=== PATIENT | male | born 1975 | race Caucasian/White ===

== ENCOUNTER 2016-06-05 09:37 | Emergency (ER) | payer MEDICAID ==
[~2016-06-05] VITALS: Ht 175.3 cm; Wt 109.0 kg
[2016-06-05 09:44] VITALS: BP 176/117; PULSE 104; RESP 16; TEMP 99.6; O2SAT 98
--- NOTE | 2016-06-05 10:07 | PD ---
HPI Chief Complaint: Complaint Time Seen by Provider: 09:51 Travel History International Travel<30 days: No Contact w/Intl Traveler<30days: No Traveled to known affect area: No History of Present Illness HPI This 40-year-old male is complaining of right flank pain. He says he has been having pain off and on for the last couple of days. It varies in intensity. He has had to urinate frequently and urinates small amounts he he has had some pain in the scrotum. He says that he had a kidney stone several years ago and about 2004. He passed the stone without complication. He has a history of hypertension and is supposed to be on lisinopril 10 mg daily but has not had it for about a month. He does smoke cigarettes. He's been a drinker in the past. He has noted dark urine. PFSH Past Medical History Depression: Yes Cardiovascular Problems: Yes (htn not taking b/p meds out of meds) Hypertension: Yes Social History Alcohol Use: No Tobacco Use: Yes (2 1/2PPD) Substance Use: No Allergies-Medications (Allergen,Severity, Reaction): Coded Allergies: No Known Allergies (Unverified , 06/05/16) Reported Meds & Prescriptions Reported Meds & Active Scripts Active Percocet (Oxycodone-Acetaminophen) 10-325 mg Tab 1 Tab PO Q4H PRN Lisinopril 10 Mg Tab 10 Mg PO DAILY Review of Systems General / Constitutional: No: Fever, Chills Eyes: No: Diploplia, Blurred Vision HENT: No: Headaches, Vertigo Cardiovascular: No: Chest Pain or Discomfort, Palpitations Respiratory: No: Shortness of Breath Gastrointestinal: No: Diarrhea, Abdominal Pain Genitourinary: Positive: Frequency, Decreased Urinary Output, Flank Pain Musculoskeletal: No: Myalgias, Arthralgias Skin: No Rash Neurologic: No: Weakness, Dizziness Hematologic/Lymphatic: No: Easy Bruising Physical Exam Narrative GENERAL: Well-developed male SKIN: Warm and dry. HEAD: Atraumatic. Normocephalic. EYES: Pupils equal and round. No scleral icterus. No injection or drainage. ENT: No nasal bleeding or discharge. Mucous membranes pink and moist. NECK: Trachea midline. No JVD. CARDIOVASCULAR: Regular rate and rhythm. No murmur appreciated. RESPIRATORY: No accessory muscle use. Clear to auscultation. Breath sounds equal bilaterally. GASTROINTESTINAL: Abdomen soft, non-tender, nondistended. Hepatic and splenic margins not palpable. There is right CVA tenderness : There is no focal tenderness of the testicles. MUSCULOSKELETAL: No obvious deformities. No clubbing. No cyanosis. No edema. NEUROLOGICAL: Awake and alert. No obvious cranial nerve deficits. Motor grossly within normal limits. Normal speech. PSYCHIATRIC: Appropriate mood and affect; insight and judgment normal. Data Data Last Documented VS Vital Signs Date Time Temp Pulse Resp B/P Pulse Ox O2 Delivery O2 Flow Rate FiO2 06/05/16 10:17 94 20 130/81 98 06/05/16 09:44 99.6 Orders Complete Blood Count With Diff (06/05/16 10:02) Basic Metabolic Panel (Bmp) (06/05/16 10:02) Urinalysis - C+S If Indicated (06/05/16 10:02) Ketorolac Inj (Toradol Inj) (06/05/16 10:15) Ondansetron Inj (Zofran Inj) (06/05/16 10:15) Hydromorphone Pf Inj (Dilaudid Pf Inj) (06/05/16 10:15) Lisinopril (Prinivil) (06/05/16 10:15) Labs Laboratory Tests Test 06/05/16 10:05 White Blood Count 7.8 TH/MM3 Red Blood Count 5.14 MIL/MM3 Hemoglobin 15.6 GM/DL Hematocrit 45.3 % Mean Corpuscular Volume 88.0 FL Mean Corpuscular Hemoglobin 30.4 PG Mean Corpuscular Hemoglobin 34.5 % Concent Red Cell Distribution Width 12.4 % Platelet Count 271 TH/MM3 Mean Platelet Volume 7.9 FL Neutrophils (%) (Auto) 58.5 % Lymphocytes (%) (Auto) 30.0 % Monocytes (%) (Auto) 8.4 % Eosinophils (%) (Auto) 2.0 % Basophils (%) (Auto) 1.1 % Neutrophils # (Auto) 4.5 TH/MM3 Lymphocytes # (Auto) 2.3 TH/MM3 Monocytes # (Auto) 0.7 TH/MM3 Eosinophils # (Auto) 0.2 TH/MM3 Basophils # (Auto) 0.1 TH/MM3 CBC Comment DIFF FINAL Differential Comment Urine Collection Type CLEAN CATCH Urine Color DARK-YELLOW Urine Turbidity CLEAR Urine pH 6.5 Urine Specific [place] 1.035 Urine Protein TRACE mg/dL Urine Glucose (UA) NEG mg/dL Urine Ketones TRACE mg/dL Urine Occult Blood MOD Urine Nitrite POS Urine Bilirubin NEG Urine Leukocyte Esterase NEG Urine RBC 25-49 /hpf Urine WBC 0-2 /hpf Urine Squamous Epithelial 0-5 /hpf Cells Urine Calcium Oxalate Crystals MOD /hpf Urine Mucus MOD /lpf Microscopic Urinalysis Comment CULT NOT INDICATED Urine Collection Time 10:05 Sodium Level 144 MEQ/L Potassium Level 4.4 MEQ/L Chloride Level 106 MEQ/L Carbon Dioxide Level 29.0 MEQ/L Anion Gap 9 MEQ/L Blood Urea Nitrogen 9 MG/DL Creatinine 0.99 MG/DL Estimat Glomerular Filtration 84 ML/MIN Rate Random Glucose 109 MG/DL Calcium Level 9.0 MG/DL [facility] Medical Decision Making Medical Screen Exam Complete: Yes Emergency Medical Condition: Yes Medical Record Reviewed: Yes Interpretation(s) Laboratory Tests Test 06/05/16 10:05 White Blood Count 7.8 TH/MM3 Red Blood Count 5.14 MIL/MM3 Hemoglobin 15.6 GM/DL Hematocrit 45.3 % Mean Corpuscular Volume 88.0 FL Mean Corpuscular Hemoglobin 30.4 PG Mean Corpuscular Hemoglobin 34.5 % Concent Red Cell Distribution Width 12.4 % Platelet Count 271 TH/MM3 Mean Platelet Volume 7.9 FL Neutrophils (%) (Auto) 58.5 % Lymphocytes (%) (Auto) 30.0 % Monocytes (%) (Auto) 8.4 % Eosinophils (%) (Auto) 2.0 % Basophils (%) (Auto) 1.1 % Neutrophils # (Auto) 4.5 TH/MM3 Lymphocytes # (Auto) 2.3 TH/MM3 Monocytes # (Auto) 0.7 TH/MM3 Eosinophils # (Auto) 0.2 TH/MM3 Basophils # (Auto) 0.1 TH/MM3 CBC Comment DIFF FINAL Differential Comment Urine Collection Type CLEAN CATCH Urine Color DARK-YELLOW Urine Turbidity CLEAR Urine pH 6.5 Urine Specific [place] 1.035 Urine Protein TRACE mg/dL Urine Glucose (UA) NEG mg/dL Urine Ketones TRACE mg/dL Urine Occult Blood MOD Urine Nitrite POS Urine Bilirubin NEG Urine Leukocyte Esterase NEG Urine RBC 25-49 /hpf Urine WBC 0-2 /hpf Urine Squamous Epithelial 0-5 /hpf Cells Urine Calcium Oxalate Crystals MOD /hpf Urine Mucus MOD /lpf Microscopic Urinalysis Comment CULT NOT INDICATED Urine Collection Time 10:05 Sodium Level 144 MEQ/L Potassium Level 4.4 MEQ/L Chloride Level 106 MEQ/L Carbon Dioxide Level 29.0 MEQ/L Anion Gap 9 MEQ/L Blood Urea Nitrogen 9 MG/DL Creatinine 0.99 MG/DL Estimat Glomerular Filtration 84 ML/MIN Rate Random Glucose 109 MG/DL Calcium Level 9.0 MG/DL Differential Diagnosis Differential includes renal colic, UTI, pyelonephritis Narrative Course Urine shows red cells but no evidence of white cells or infection. Blood work is unremarkable. Presentation is consistent with right renal colic. Patient has a history of hypertension and will also be restarted on his lisinopril Diagnosis Primary Impression: Renal colic on right side Additional Instructions: Force fluids, strain all urines Scripts Oxycodone-Acetaminophen (Percocet)10-325 mg Tab1 Tab PO Q4H PRN (PAIN) #20 TAB Ref 0 Prov:Jordan Lovett MD 06/05/16 Lisinopril 10 Mg Tab10 Mg PO DAILY #30 TAB Ref 0 Prov:Jordan Lovett MD 06/05/16 Disposition: 01 DISCHARGE HOME Condition: Stable Jordan Lovett MD Jun 05, 2016 10:07
[2016-06-05] MEDS ORDERED: PERC10TA27 PO (10:09)
[2016-06-05] MEDS ORDERED: LISI10TA3 PO (10:09)
[2016-06-05 10:13] LABS: AUTOMATED NEUTROPHIL # 4.5 TH/MM3 (1.8-7.7); BASOPHIL # 0.1 TH/MM3 (0-0.2); BASOPHIL % 1.1 % (0.0-2.0); EOSINOPHIL # 0.2 TH/MM3 (0-0.4); HEMATOCRIT 45.3 % (39.0-51.0); HEMO FLAGS DIFF FINAL; LYMPHOCYTE # 2.3 TH/MM3 (1.0-4.8); MEAN CORPUSCULAR HEMOGLOBIN 30.4 PG (27.0-34.0); MEAN CORPUSCULAR HGB CONC 34.5 % (32.0-36.0); MONO % 8.4 % (0.0-8.0); NEUT % 58.5 % (16.0-70.0); PLATELET COUNT 271 TH/MM3 (150-450); RED BLOOD COUNT 5.14 MIL/MM3 (4.50-5.90); RED CELL DISTRIBUTION WIDTH 12.4 % (11.6-17.2); WHITE BLOOD COUNT 7.8 TH/MM3 (4.0-11.0)
[2016-06-05] MEDS ORDERED: HYDROmorphone HCL PF 1 MG/ML VIAL IV PUSH ONE (10:15)
[2016-06-05] MEDS ORDERED: KETOROLAC TROMETHAMINE 30 MG/ML (IVP) VIAL IV PUSH ONE (10:15)
[2016-06-05] MEDS ORDERED: ONDANSETRON HCL 4 MG/2 ML VIAL IV PUSH ONE (10:15)
[2016-06-05] MEDS ORDERED: LISINOPRIL 10 MG TAB PO ONE (10:15)
[2016-06-05 10:17] VITALS: BP 130/81; PULSE 94; RESP 20; O2SAT 98
[2016-06-05 10:19] LABS: GLUCOSE,URINE NEG (NEG); KETONE, URINE TRACE mg/dL (NEG); PH, URINE 6.5 (5.0-8.5)
[2016-06-05 10:21] LABS: POTASSIUM 4.4 MEQ/L (3.5-5.1)
[2016-06-05 10:25] LABS: BLOOD, URINE MOD (NEG); METHOD OF COLLECTION CLEAN CATCH; NITRITE,URINE POS (NEG)
[2016-06-05 10:26] LABS: CALCIUM OXALATE CRYSTALS,URINE MOD /hpf; MUCUS URINE MOD /lpf (OCC); SQUAMOUS EPITHELIAL CELL URINE 0-5 /hpf (0-5); URINE COLOR DARK-YELLOW (YELLW/STRAW); WBC, URINE 0-2 /hpf (0-5)
[2016-06-05 10:27] LABS: COMMENT (UR) CULT NOT INDICATED; CULTURE IF INDICATED CULT NOT INDICATED
[2016-06-05 11:30] VITALS: BP 128/69
[2016-07-01] MEDS ORDERED: LISI10TA3 PO (11:29)
[2016-07-01] MEDS ORDERED: NEUR600T PO (11:29)
== END 2016-06-05 11:31 | disposition home or self-care (01) ==
LOC: PHED 09:37
DX: N23 Unspecified renal colic (principal); I10 Essential (primary) hypertension; F17.210 Nicotine dependence, cigarettes, uncomplicated
CPT/HCPCS: 80048; 81001; 85025; 96374; 96375; 99284; J1170; J1885; J2405

== ENCOUNTER 2016-06-12 08:31 | Emergency (ER) | payer MEDICAID ==
[~2016-06-12] VITALS: Ht 170.2 cm; Wt 109.0 kg
[~2016-06-12 08:31] MED LIST: LISI10TA3 PO; PERC10TA27 PO
[2016-06-12 08:35] VITALS: BP 165/121; PULSE 96; RESP 18; TEMP 98.2; O2SAT 97
[2016-06-12] MEDS ORDERED: ZYPR2.5T2 PO (08:46)
[2016-06-12] MEDS ORDERED: NEUR600T PO ×2 (08:46→08:53)
[2016-06-12] MEDS ORDERED: TRAM50TA PO (08:46)
[2016-06-12] MEDS ORDERED: LURA20TA PO (08:46)
[2016-06-12] MEDS ORDERED: LISI10TA3 PO (08:53)
--- NOTE | 2016-06-12 08:53 | PD ---
HPI Chief Complaint: Medication Refill Request Time Seen by Provider: 08:44 Travel History International Travel<30 days: No Contact w/Intl Traveler<30days: No Traveled to known affect area: No History of Present Illness HPI 40-year-old man, presents complaining of worsening restless leg symptoms after being out of his Neurontin and tramadol. [place] Is setting up with his insurance. Also is history of mental health disease. History Past Medical History Narrative Medical Psychiatric disease, diagnosed schizophrenia and bipolar Restless leg syndrome Hypertension Tetanus Vaccination: < 5 Years Influenza Vaccination: No Past Surgical History Surgical History: No Previous Surgery Social History Alcohol Use: No Tobacco Use: Yes (3 ppd) Allergies-Medications (Allergen,Severity, Reaction): Coded Allergies: No Known Allergies (Unverified , 06/12/16) Reported Meds & Prescriptions Reported Meds & Active Scripts Active Lisinopril 10 Mg Tab 10 Mg PO DAILY Reported Zyprexa (Olanzapine) 2.5 Mg Tab 2.5 Mg PO DAILY Latuda (Lurasidone) 20 Mg Tab 20 Mg PO DAILY Tramadol (Tramadol HCl) 50 Mg Tab 100 Mg PO BID PRN Neurontin (Gabapentin) 600 Mg Tab 600 Mg PO BID Review of Systems Except as stated in HPI: all other systems reviewed are Neg Physical Exam Narrative GENERAL: 40 year-old man, restless and anxious. SKIN: Warm and dry. CARDIOVASCULAR: Warm and well perfused. RESPIRATORY: Normal rate and effort. MUSCULOSKELETAL: No deformities. NEUROLOGICAL: Awake and alert. No gross deficits. Data Data Last Documented VS Vital Signs Date Time Temp Pulse Resp B/P Pulse Ox O2 Delivery O2 Flow Rate FiO2 06/12/16 08:46 96 18 06/12/16 08:35 98.2 165/121 97 MDM Medical Decision Making Medical Screen Exam Complete: Yes Emergency Medical Condition: Yes Differential Diagnosis Anxiety, restless leg, bipolar, other Narrative Course Medical decision-making new para [age] year-old man presents emergent department requesting refills on medications. At that we can refill medications are not controlled forearm. With a primary care doctor. Is also referred to Jose Acosta/courtney. Diagnosis Primary Impression: Restless leg syndrome Additional Impression: Schizophrenia Qualified Code: F20.9 - Schizophrenia, unspecified type Additional Instructions: Take medications as prescribed. Follow-up with Jose Sweet/courtney. Follow-up with her primary care physician. Med/Other Pt SpecificInfo: Prescription(s) given Scripts Gabapentin (Neurontin)600 Mg [id number] Mg PO BID #60 TAB Ref 0 Prov:Michael Mckeon MD 06/12/16 Lisinopril 10 Mg Tab10 Mg PO DAILY #30 TAB Ref 0 Prov:Michael Mckeon MD 06/12/16 Disposition: 01 DISCHARGE HOME Condition: Stable Michael Mckeon MD Jun 12, 2016 08:53
[2016-06-12] MEDS ORDERED: traMADol HCL 50 MG TAB PO ONE (09:00)
[2016-07-01] MEDS ORDERED: LISI10TA3 PO (11:29)
[2016-07-01] MEDS ORDERED: NEUR600T PO (11:29)
== END 2016-06-12 09:39 | disposition home or self-care (01) ==
LOC: PHED 08:31
DX: G25.81 Restless legs syndrome (principal); F20.9 Schizophrenia, unspecified; I10 Essential (primary) hypertension; F17.210 Nicotine dependence, cigarettes, uncomplicated
CPT/HCPCS: 99283

== ENCOUNTER 2016-11-15 09:22 | Emergency (ER) | payer MEDICAID, OTHER ==
[~2016-11-15] VITALS: Ht 175.3 cm; Wt 107.0 kg
[~2016-11-15 09:22] MED LIST changes: +NEUR600T PO; -PERC10TA27 PO
[2016-11-15 09:26] VITALS: BP 145/102; PULSE 112; RESP 16; TEMP 98.6; O2SAT 98
[2016-11-15] MEDS ORDERED: TRAM50TA PO (09:42)
[2016-11-15] MEDS ORDERED: BACT800T5 PO (09:42)
[2016-11-15] MEDS ORDERED: IBUP800T23 PO (09:42)
--- NOTE | 2016-11-15 09:43 | PD ---
HPI . Abscess Chief Complaint: Skin Problem Time Seen by Provider: 09:38 Travel History International Travel<30 days: No Contact w/Intl Traveler<30days: No Traveled to known affect area: No History of Present Illness HPI Patient presents with an abscess on his right lower leg. He reports the onset about 2 days ago. It has been getting progressively worse. He states that this started as an itching and burning grass to a dull, constant ache which he rates as 8/10. PFSH Past Medical History Bipolar Disorder: Yes Anxiety: Yes Depression: Yes Cardiovascular Problems: Yes (htn not taking b/p meds out of meds) Diminished Hearing: No Hypertension: Yes Social History Alcohol Use: No Tobacco Use: Yes (5 CIG DAY) Substance Use: No Allergies-Medications (Allergen,Severity, Reaction): Coded Allergies: No Known Allergies (Unverified , 11/15/16) Reported Meds & Prescriptions Reported Meds & Active Scripts Active No Active Prescriptions or Reported Medications Review of Systems Except as stated in HPI: all other systems reviewed are Neg General / Constitutional: Positive: Chills, No: Fever Skin: Positive Change in Pigmentation, Positive Lesions Physical Exam Narrative GENERAL: Awake and alert and in no acute distress. SKIN: Warm and dry. He has a 2 cm in diameter area of induration and erythema on the lateral right lower extremity. There is no fluctuance. It is tender to palpation. HEAD: Atraumatic. Normocephalic. EYES: Pupils equal and round. NECK: Trachea midline. CARDIOVASCULAR: Regular rate and rhythm. RESPIRATORY: No accessory muscle use. MUSCULOSKELETAL: No obvious deformities. No edema. NEUROLOGICAL: Awake and alert. No obvious cranial nerve deficits. Motor grossly within normal limits. Normal speech. PSYCHIATRIC: Appropriate mood and affect; insight and judgment normal. Data Data Last Documented VS Vital Signs Date Time Temp Pulse Resp B/P Pulse Ox O2 Delivery O2 Flow Rate FiO2 11/15/16 09:26 98.6 112 16 145/102 98 MDM Medical Decision Making Medical Screen Exam Complete: Yes Emergency Medical Condition: Yes Differential Diagnosis My differential diagnosis includes but is not limited to localized wound infection, cellulitis, abscess Narrative Course Patient presents with an area of redness and swelling on his right lateral lower leg. It appears to be an early abscess. I will treat him with antibiotics, pain medication and warm compresses. He is to return in 2 days for recheck. Diagnosis Primary Impression: Abscess Patient Instructions: Abscess (ED), General Instructions Additional Instructions: Warm compresses to the area as much as possible. Return here in 2 days for recheck and possible drainage. Med/Other Pt SpecificInfo: Prescription(s) given Scripts Tramadol 50 Mg Tab50 Mg PO Q4H PRN (PAIN) #12 TAB Ref 0 Prov:Daxa Meadows MD 11/15/16 Ibuprofen 800 Mg [id number] Mg PO Q8H PRN (Pain/Inflammation) #60 TAB Ref 0 Prov:Daxa Meadows MD 11/15/16 Sulfamethoxazole-Trimethoprim (Bactrim DS)800-160 Mg Tab1 Tab PO BID #20 TAB Ref 0 Prov:Daxa Meadows MD 11/15/16 Disposition: 01 DISCHARGE HOME Condition: Stable Daxa Meadows MD Nov 15, 2016 09:43
== END 2016-11-15 10:00 | disposition home or self-care (01) ==
LOC: PHED 09:22
DX: L02.415 Cutaneous abscess of right lower limb (principal); I10 Essential (primary) hypertension
CPT/HCPCS: 99284

== ENCOUNTER 2016-12-13 23:02 | Emergency (ER) | payer OTHER ==
[~2016-12-13] VITALS: Ht 175.3 cm; Wt 103.6 kg
[~2016-12-13 23:02] MED LIST changes: +BACT800T5 PO; +IBUP800T23 PO; -LISI10TA3 PO; -NEUR600T PO; +TRAM50TA PO
[2016-12-13 23:08] VITALS: BP 142/110; PULSE 108; RESP 16; TEMP 98.8; O2SAT 100
--- NOTE | 2016-12-13 23:37 | PD ---
HPI Chief Complaint: Psychiatric Symptoms Time Seen by Provider: 23:18 Travel History International Travel<30 days: No Contact w/Intl Traveler<30days: No Traveled to known affect area: No History of Present Illness HPI This is a 40-year-old male who presents to the emergency department with increasing anxiety, sleeplessness and paranoia. The patient has a history of schizophrenia. He says he started to have problems about 2-1/2 years ago after his overdosed in his arms and . Ever since then he lost control. He moved to [facility] to try to change things. He's been looking to restoration to try to get help and hasn't been taking any medications but this isn' t been helping. He was over at his friend's house today and he started to look out the window and was paranoid about airplanes trying to come get him and he says he's been having dreams about the devil. He knows that these are not normal and he knows that he is having mental health trouble and he wants help. He denies any alcohol or substance use. PFSH Past Medical History Bipolar Disorder: Yes Anxiety: Yes Depression: Yes Cardiovascular Problems: Yes (htn not taking b/p meds out of meds) Diminished Hearing: No Hypertension: Yes Social History Alcohol Use: No Tobacco Use: Yes (5 CIG DAY) Substance Use: No Allergies-Medications (Allergen,Severity, Reaction): Coded Allergies: No Known Allergies (Unverified , 12/14/16) Reported Meds & Prescriptions Reported Meds & Active Scripts Active Reported Tramadol (Tramadol HCl) 50 Mg Tab 50 Mg PO Q8H PRN Latuda (Lurasidone) 20 Mg Tab 20 Mg PO DAILY Neurontin (Gabapentin) 100 Mg Cap 100 Mg PO HS Lisinopril 10 Mg Tab 10 Mg PO DAILY Review of Systems Except as stated in HPI: all other systems reviewed are Neg Physical Exam Narrative GENERAL:Well appearing, no acute distress SKIN: Focused skin assessment warm and dry. HEAD: Atraumatic. Normocephalic. EYES: Pupils equal and round. No injection or drainage. ENT: Moist mucous membranes NECK: Trachea midline. CARDIOVASCULAR: Regular rate and rhythm. No murmur appreciated. RESPIRATORY: Clear to auscultation. Breath sounds equal bilaterally. GASTROINTESTINAL: Abdomen soft, non-tender, nondistended. MUSCULOSKELETAL: No obvious deformities. NEUROLOGICAL: Awake and alert. No obvious cranial nerve deficits. Moving all extremities. PSYCHIATRIC: Pressured speech, anxious, paranoid, no suicidal or homicidal ideation Data Data Last Documented VS Vital Signs Date Time Temp Pulse Resp B/P Pulse Ox O2 Delivery O2 Flow Rate FiO2 12/13/16 23:45 98 22 153/96 99 Room Air 12/13/16 23:08 98.8 Orders Lorazepam (Ativan) (12/13/16 23:45) Complete Blood Count With Diff (12/13/16 23:32) Basic Metabolic Panel (Bmp) (12/13/16 23:32) Alcohol (Ethanol) (12/13/16 23:32) Drug Screen, Random Urine (12/13/16 23:32) Psych Screen (12/13/16 23:37) Labs Laboratory Tests Test 12/13/16 12/13/16 23:45 23:50 Urine Opiates Screen POS Urine Barbiturates Screen NEG Urine Amphetamines Screen NEG Urine Benzodiazepines Screen NEG Urine Cocaine Screen NEG Urine Cannabinoids Screen NEG White Blood Count 10.6 TH/MM3 Red Blood Count 4.78 MIL/MM3 Hemoglobin 14.8 GM/DL Hematocrit 42.4 % Mean Corpuscular Volume 88.6 FL Mean Corpuscular Hemoglobin 31.0 PG Mean Corpuscular Hemoglobin 35.0 % Concent Red Cell Distribution Width 12.2 % Platelet Count 309 TH/MM3 Mean Platelet Volume 7.3 FL Neutrophils (%) (Auto) 55.4 % Lymphocytes (%) (Auto) 35.6 % Monocytes (%) (Auto) 6.7 % Eosinophils (%) (Auto) 1.5 % Basophils (%) (Auto) 0.8 % Neutrophils # (Auto) 5.8 TH/MM3 Lymphocytes # (Auto) 3.8 TH/MM3 Monocytes # (Auto) 0.7 TH/MM3 Eosinophils # (Auto) 0.2 TH/MM3 Basophils # (Auto) 0.1 TH/MM3 CBC Comment DIFF FINAL Differential Comment Sodium Level 139 MEQ/L Potassium Level 3.5 MEQ/L Chloride Level 103 MEQ/L Carbon Dioxide Level 28.2 MEQ/L Anion Gap 8 MEQ/L Blood Urea Nitrogen 16 MG/DL Creatinine 1.20 MG/DL Estimat Glomerular Filtration 67 ML/MIN Rate Random Glucose 126 MG/DL Calcium Level 9.1 MG/DL Ethyl Alcohol Level LESS THAN 3 MG/DL MDM Medical Decision Making Medical Screen Exam Complete: Yes Emergency Medical Condition: Yes Interpretation(s) No leukocytosis Electrolytes are reassuring Urine drug screen is positive for opiates Differential Diagnosis Schizophrenia, anxiety, substance intoxication Narrative Course This is a 40-year-old male who reports a history of schizophrenia who presents to the emergency department with anxiety and increasing paranoia. He has preserved insight and voluntarily wants to be evaluated by psychiatry. Labs are obtained which are reassuring. Urine drug screen is positive for opiates. I think patient is medically cleared for psychiatric evaluation. Diagnosis Primary Impression: Schizophrenia Qualified Code: F20.9 - Schizophrenia, unspecified type Lucinda Polk MD Dec 13, 2016 23:36
[2016-12-13 23:45] VITALS: BP 153/96; PULSE 98; RESP 22; O2SAT 99
[2016-12-13] MEDS ORDERED: LORazepam 1 MG TAB PO ONE (23:45)
[2016-12-13 23:57] LABS: AUTOMATED NEUTROPHIL # 5.8 TH/MM3 (1.8-7.7); BASOPHIL # 0.1 TH/MM3 (0-0.2); BASOPHIL % 0.8 % (0.0-2.0); EOSINOPHIL # 0.2 TH/MM3 (0-0.4); EOSINOPHIL % 1.5 % (0.0-4.0); HEMATOCRIT 42.4 % (39.0-51.0); HEMO FLAGS DIFF FINAL; LYMPH % 35.6 % (9.0-44.0); LYMPHOCYTE # 3.8 TH/MM3 (1.0-4.8); MEAN CELL VOLUME 88.6 FL (80.0-100.0); MONO % 6.7 % (0.0-8.0); NEUT % 55.4 % (16.0-70.0); PLATELET COUNT 309 TH/MM3 (150-450); RED BLOOD COUNT 4.78 MIL/MM3 (4.50-5.90); RED CELL DISTRIBUTION WIDTH 12.2 % (11.6-17.2); WHITE BLOOD COUNT 10.6 TH/MM3 (4.0-11.0)
[2016-12-14 00:10] LABS: CHLORIDE 103 MEQ/L (98-107); POTASSIUM 3.5 MEQ/L (3.5-5.1); SODIUM (NA) 139 MEQ/L (136-145)
[2016-12-14 00:14] LABS: ANION GAP 8 MEQ/L (5-15); BICARBONATE 28.2 MEQ/L (21.0-32.0); BLOOD UREA NITROGEN 16 MG/DL (7-18)
[2016-12-14 00:17] LABS: GLOMERULAR FILTRATION RATE 67 ML/MIN (>89)
[2016-12-14] MEDS ORDERED: NEUR100C PO (00:22)
[2016-12-14] MEDS ORDERED: LURA20TA PO (00:22)
[2016-12-14] MEDS ORDERED: LISI10TA3 PO (00:22)
[2016-12-14] MEDS ORDERED: TRAM50TA PO (00:22)
[2016-12-14 00:26] LABS: AMPHETAMINE, URINE NEG (NEG)
[2016-12-14 00:27] LABS: COCAINE, URINE NEG (NEG)
[2016-12-14 00:31] LABS: BARBITURATES, URINE NEG (NEG)
[2016-12-14 02:31] VITALS: BP 178/87
[2016-12-14 02:36] VITALS: BP 160/109; PULSE 89; RESP 18; O2SAT 100
[2016-12-14 06:52] VITALS: BP 144/96; PULSE 96; RESP 18; O2SAT 99
[2016-12-14] MEDS ORDERED: GABA600T PO (08:21)
[2016-12-14] MEDS ORDERED: ZYPR5TAB PO (08:21)
--- NOTE | 2016-12-14 08:21 | PD.PSY.CON ---
Provisional Diagnosis Admission Date Date of consultation 12/14/16 [place]. 1. Schizophrenia, undifferentiated type, presently fairly stable 2. History of opiate dependence, rule-out covert active use [place] II. Deferred [place] V. GAF is 55 History of Present Illness Service Psychiatry Consult Requested By Emergency department Reason for Consult Voluntary psych eval Primary Care Physician No Primary Care Physician HPI Mr. Hernández is a 40-year-old male with reported history of schizophrenia who presents voluntarily to the ED for psychiatric evaluation. ED provider note reviewed. EMR reviewed. No previous psych contact within our system. Patient seen and examined. Chart reviewed. Case discussed with nurse in the J- pod. No evidence of any suicidality or homicidality while under observation in the J-pod. On my examination this morning, patient is calm and cooperative. Thought process linear and logical. He says that he has been off of psychotropic medications since moving from [place] at the beginning of the year. He has not established psychiatric care here in [facility]. In the setting of this medication nonadherence, he has starting to become a little paranoid. He says he has been nagging thought that airplanes may be tracking him, although he is able at this point to convince himself that this is not the case. Sleep has been a little disrupted although he was able to get some sleep last night in the J-pod. Denies audiovisual hallucinations. No other delusional material. Denies suicidal or homicidal ideation, intent or plan on direct questioning and contracts for safety. No severe depressive or hypomanic/ manic symptoms noted. The remainder of the psychiatric ROS is negative. The patient is agreeable to following up on an outpatient basis and does not think he requires inpatient psychiatric services at this time. He does request a prescription for his Zyprexa and also for his gabapentin for restless legs on discharge from the ED. Past psychiatric history: History of schizophrenia. Not currently under the care of a psychiatrist. Most recently admitted in June of this year in [place]. Previously tried to hang himself 2 years ago. Most recent psychotropic regimen included Zyprexa, Latuda, Lexapro. He also takes gabapentin 1200 mg twice daily and tramadol for restless legs. Family history: Schizophrenia in sister and maternal grandmother. Mother has some sort of mental illness. Father alcoholic. No suicide in the family. Chemical dependency history: Patient admits to a history of opiate dependence but maintains that he has been sober since his from an overdose about 2-1/2 years ago. Says that the opiates in his urine are from using Ultram one week ago. Social history: Patient is . Moved from [place] in July of this year. Staying with a friend by the name of Stas. Eighth grade education. Disabled. Denies history. Denies legal history. Denies access to guns or firearms. Believes in God. Review of Systems Except as stated in HPI: all other systems reviewed are Neg Past Family Social History Coded Allergies: No Known Allergies (Unverified , 12/14/16) Past Medical History see emr Active Scripts Gabapentin 600 Mg Tab1,200 Mg PO BID 3 Days Ref 0 Prov:Jose Kahn MD 12/14/16 Olanzapine (Zyprexa)5 Mg Tab5 Mg PO HS #3 TAB Ref 0 Prov:Jose Kahn MD 12/14/16 Reported Medications Tramadol 50 Mg Tab50 Mg PO Q8H PRN (PAIN) Ref 0 12/14/16 Lurasidone (Latuda)20 Mg Tab20 Mg PO DAILY #30 TAB Ref 0 12/14/16 Gabapentin (Neurontin)100 Mg [id number] Mg PO HS #30 CAP Ref 0 12/14/16 Lisinopril 10 Mg Tab10 Mg PO DAILY #30 TAB Ref 0 12/14/16 Discontinued Scripts Tramadol 50 Mg Tab50 Mg PO Q4H PRN (PAIN) #12 TAB Ref 0 Prov:Daxa Meadows MD 11/15/16 Ibuprofen 800 Mg [id number] Mg PO Q8H PRN (Pain/Inflammation) #60 TAB Ref 0 Prov:Daxa Meadows MD 11/15/16 Sulfamethoxazole-Trimethoprim (Bactrim DS)800-160 Mg Tab1 Tab PO BID #20 TAB Ref 0 Prov:Daxa Meadows MD 11/15/16 Patient's Strengths (min. 2) Able to access clinical care. Verbally fluent. Physical Exam PE completed by ED provider. On my exam, patient in no acute physical distress. No motor abnormalities noted. Labs and vitals reviewed: Vital Signs Vital Signs Date Time Temp Pulse Resp B/P Pulse Ox O2 Delivery O2 Flow Rate FiO2 12/14/16 06:52 96 18 144/96 99 12/13/16 23:45 Room Air 12/13/16 23:08 98.8 Lab Results Laboratory Tests Test 12/13/16 12/13/16 23:45 23:50 Urine Opiates Screen POS Urine Barbiturates Screen NEG Urine Amphetamines Screen NEG Urine Benzodiazepines Screen NEG Urine Cocaine Screen NEG Urine Cannabinoids Screen NEG White Blood Count 10.6 TH/MM3 Red Blood Count 4.78 MIL/MM3 Hemoglobin 14.8 GM/DL Hematocrit 42.4 % Mean Corpuscular Volume 88.6 FL Mean Corpuscular Hemoglobin 31.0 PG Mean Corpuscular Hemoglobin 35.0 % Concent Red Cell Distribution Width 12.2 % Platelet Count 309 TH/MM3 Mean Platelet Volume 7.3 FL Neutrophils (%) (Auto) 55.4 % Lymphocytes (%) (Auto) 35.6 % Monocytes (%) (Auto) 6.7 % Eosinophils (%) (Auto) 1.5 % Basophils (%) (Auto) 0.8 % Neutrophils # (Auto) 5.8 TH/MM3 Lymphocytes # (Auto) 3.8 TH/MM3 Monocytes # (Auto) 0.7 TH/MM3 Eosinophils # (Auto) 0.2 TH/MM3 Basophils # (Auto) 0.1 TH/MM3 CBC Comment DIFF FINAL Differential Comment Sodium Level 139 MEQ/L Potassium Level 3.5 MEQ/L Chloride Level 103 MEQ/L Carbon Dioxide Level 28.2 MEQ/L Anion Gap 8 MEQ/L Blood Urea Nitrogen 16 MG/DL Creatinine 1.20 MG/DL Estimat Glomerular Filtration 67 ML/MIN Rate Random Glucose 126 MG/DL Calcium Level 9.1 MG/DL Ethyl Alcohol Level LESS THAN 3 MG/DL Mental Status Examination Patient is in hospital gown. He is fairly well groomed and maintaining basic hygiene. Awake and alert and oriented to person and hospital at least. No evidence of delirium. No motor abnormalities noted. Speech within normal limits for rate, tone and volume. Focus and concentration intact. Memory grossly intact on clinical exam. Mood fair and affect somewhat blunted. Thought process linear. No loosening of associations. Some mild paranoia but reality testing remains intact. No other delusions. Denies audiovisual hallucinations. Denies suicidal or homicidal ideation, intent or plan. Insight and judgment are fair. Assessment & Plan Problem List: (1) Schizophrenia ICD Code: F20.9 Assessment & Plan 40-year-old male presenting voluntarily to the emergency department for psychiatric evaluation. He has a history of schizophrenia and has been off of his psychotropic since the beginning of the year when he moved from [place]. Previously took Latuda, Zyprexa and Lexapro. Patient is experiencing some feelings of paranoia, but his reality testing remains intact and he had good insight and judgment in coming into the ED voluntarily. He is denying suicidal or homicidal ideation. There is no evidence of severe psychotic decompensation or other severely unstable mental illness. He is agreeable to following up on an outpatient basis. He is attending to his basic needs. He does not require inpatient psychiatric services at this time. We will refer him for outpatient psychiatric services in the area. I will provide him with a 3 day supply of Zyprexa 5 mg at bedtime as he is unsure of the dose he was taking and has been non-adherent anyway and so a lower dose is preferred initially and also of gabapentin 1200 mg twice daily, his reported home dose. I have discussed the risks and benefits of these medications with the patient. I have reviewed the recommendations regarding gabapentin dosing with respect to his GFR. I have counseled the patient to follow-up on an outpatient basis. I counseled patient regarding warning signs for need to return to the psychiatric emergency room as part of the general safety plan. Patient is psychiatrically clear for discharge from the ED. Request HC Surrog/Guard Advoc?: No Problem Qualifiers (1) Schizophrenia: Qualified Code: F20.3 - Undifferentiated schizophrenia Jose Kahn MD Dec 14, 2016 08:21
[2016-12-14 08:25] VITALS: BP 133/72
== END 2016-12-14 08:48 | disposition home or self-care (01) ==
LOC: PHED 23:02 → NEPJ 12-14 08:48
DX: F20.9 Schizophrenia, unspecified (principal); F20.3 Undifferentiated schizophrenia; I10 Essential (primary) hypertension; Z72.0 Tobacco use; Z79.899 Other long term (current) drug therapy; Z86.59 Personal history of other mental and behavioral disorders; Z86.79 Personal history of other diseases of the circulatory system
CPT/HCPCS: 80048; 80307; 85025; 99281; 99283

== ENCOUNTER 2016-12-21 09:39 | Emergency (ER) | payer OTHER ==
[~2016-12-21] VITALS: Ht 177.8 cm; Wt 100.0 kg
[~2016-12-21 09:39] MED LIST changes: -BACT800T5 PO; +GABA600T PO; -IBUP800T23 PO; +LISI10TA3 PO; +LURA20TA PO; +NEUR100C PO; +ZYPR5TAB PO
[2016-12-21 09:41] VITALS: BP 151/92; PULSE 100; RESP 18; TEMP 98.2; O2SAT 98
--- NOTE | 2016-12-21 09:44 | PD ---
HPI Chief Complaint: Medication Refill Request Time Seen by Provider: 09:44 Travel History International Travel<30 days: No Contact w/Intl Traveler<30days: No Traveled to known affect area: No History of Present Illness HPI 40 YO M with PMH of schizophrenia and restless leg syndrome presents to the ED stating medication refill. Patient states he took a 600mg dose of gabapentin yesterday morning. He reports tremors today, but denies other somatic complaints. The patient states that he just moved from [place] and is in the process of seeing a new PCP. Denies SI, HI, illicit drug use. PFSH Past Medical History Bipolar Disorder: Yes Anxiety: Yes Depression: Yes Cardiovascular Problems: Yes (htn not taking b/p meds out of meds) Diminished Hearing: No Hypertension: Yes Schizophrenia: Yes Social History Alcohol Use: No (DENIES USE SINCE 2014) Tobacco Use: Yes (/2 PPD) Substance Use: Yes Allergies-Medications (Allergen,Severity, Reaction): Coded Allergies: No Known Allergies (Unverified , 12/21/16) Reported Meds & Prescriptions Reported Meds & Active Scripts Active Gabapentin 600 Mg Tab 1,200 Mg PO BID 14 Days Gabapentin 600 Mg Tab 1,200 Mg PO BID 3 Days Reported Lisinopril 10 Mg Tab 10 Mg PO DAILY Review of Systems Except as stated in HPI: all other systems reviewed are Neg Physical Exam Narrative GENERAL: Well-nourished, well-developed white male. Mildly tremulous, otherwise well appearing. PSYCHIATRIC: No delusional thought processes. No hallucinations. SKIN: Focused skin assessment warm/dry. HEAD: Normocephalic. EYES: No scleral icterus. No injection or drainage. NECK: Supple, trachea midline. No JVD or lymphadenopathy. CARDIOVASCULAR: Regular rate and rhythm without murmurs, gallops, or rubs. RESPIRATORY: Breath sounds equal bilaterally. No accessory muscle use. GASTROINTESTINAL: Abdomen soft, non-tender, nondistended. MUSCULOSKELETAL: No cyanosis, or edema. NEUROLOGICAL: Awake and alert. Cranial nerves II through XII intact. Motor and sensory grossly within normal limits. Normal strength. Normal speech. BACK: Nontender without obvious deformity. No CVA tenderness. Data Data Last Documented VS Vital Signs Date Time Temp Pulse Resp B/P Pulse Ox O2 Delivery O2 Flow Rate FiO2 12/21/16 09:46 100 18 12/21/16 09:41 98.2 151/92 98 Orders Gabapentin (Neurontin) (12/21/16 10:00) [facility] Medical Decision Making Medical Screen Exam Complete: Yes Emergency Medical Condition: Yes Differential Diagnosis restless leg syndrome versus medication refill versus malingering versus other Narrative Course 40 YO M with PMH of schizophrenia and restless leg syndrome presents to the ED stating medication refill. Patient states he took a 600mg dose of gabapentin yesterday morning. He reports tremors today, but denies other somatic complaints. The patient states that he just moved from [place] and is in the process of seeing a new PCP. Vitals reviewed. Heart rate 100 in triage. Patient is mildly tremulous on exam, but otherwise unremarkable. He was prescribed a 14 day supply of 1200 mg gabapentin BID, first dose administered in the ED. He is instructed to follow up with the PCP. He is stable and discharged home. Diagnosis Primary Impression: Medication refill Referrals: Primary Care Physician Patient Instructions: General Instructions, Restless Legs Syndrome (ED) Additional Instructions: Rest, hydrate. Return to normal, gentle activities as tolerated. Resume at home medications. Follow up with the PCP as discussed. Return to the ED for any urgent or emergent medical condition. Med/Other Pt SpecificInfo: Prescription(s) given Scripts Gabapentin 600 Mg Tab1,200 Mg PO BID 14 Days Ref 0 Prov:Milagro Valerio MD 12/21/16 Disposition: 01 DISCHARGE HOME Condition: Stable Syeda Dwyer Dec 21, 2016 09:44
[2016-12-21] MEDS ORDERED: GABA600T PO (09:58)
[2016-12-21] MEDS ORDERED: GABAPENTIN 300 MG CAP PO SCH (10:00)
== END 2016-12-21 10:03 | disposition home or self-care (01) ==
LOC: NEPD 09:39
DX: Z76.0 Encounter for issue of repeat prescription (principal); F20.9 Schizophrenia, unspecified; G25.81 Restless legs syndrome; F31.9 Bipolar disorder, unspecified; F41.9 Anxiety disorder, unspecified; I10 Essential (primary) hypertension; F17.200 Nicotine dependence, unspecified, uncomplicated; Z79.899 Other long term (current) drug therapy
CPT/HCPCS: 99283

== ENCOUNTER 2017-02-13 11:08 | Emergency (ER) | payer OTHER ==
[~2017-02-13] VITALS: Ht 177.8 cm; Wt 103.0 kg
[~2017-02-13 11:08] MED LIST changes: -LURA20TA PO; -NEUR100C PO; -TRAM50TA PO; -ZYPR5TAB PO
[2017-02-13 11:10] VITALS: BP 165/85; PULSE 97; RESP 19; TEMP 98.9; O2SAT 97
--- NOTE | 2017-02-13 11:16 | PD ---
HPI . Possible abscess for 2-3 days Chief Complaint: Skin Problem Time Seen by Provider: 11:15 Travel History International Travel<30 days: No Contact w/Intl Traveler<30days: No Traveled to known affect area: No History of Present Illness HPI 41-year-old male here with complaints of a possible abscess to his left lateral lower leg for the past 2-3 days. Patient tells me that he frequently gets these small bumps that come and go. He admits to working outside in [employer] and thinks that he may have been bitten by some type of insect. He denies any fever or chills. PFSH Past Medical History Bipolar Disorder: Yes Anxiety: Yes Depression: Yes Cardiovascular Problems: Yes (htn not taking b/p meds out of meds) Diminished Hearing: No Hypertension: Yes Schizophrenia: Yes Social History Alcohol Use: No (DENIES USE SINCE 2014) Tobacco Use: Yes (/ PPD) Substance Use: Yes Allergies-Medications (Allergen,Severity, Reaction): Coded Allergies: No Known Allergies (Unverified , 02/13/17) Reported Meds & Prescriptions Reported Meds & Active Scripts Active Bactrim DS (Sulfamethoxazole-Trimethoprim) 800-160 Mg Tab 1 Tab PO BID Gabapentin 600 Mg Tab 1,200 Mg PO BID 14 Days Gabapentin 600 Mg Tab 1,200 Mg PO BID 3 Days Reported Lisinopril 10 Mg Tab 10 Mg PO DAILY Review of Systems General / Constitutional: No: Fever Eyes: No: Visual changes HENT: No: Headaches Cardiovascular: No: Chest Pain or Discomfort Respiratory: No: Shortness of Breath Gastrointestinal: No: Abdominal Pain Genitourinary: No: Dysuria Musculoskeletal: No: Pain Skin: Positive Lesions, No Rash Neurologic: No: Weakness Psychiatric: No: Depression Endocrine: No: Polydipsia Hematologic/Lymphatic: No: Easy Bruising Physical Exam Narrative GENERAL: AAO x 3, no acute distress, Well-nourished, well-developed patient. SKIN: Warm and dry. No visible rashes or bruising. Small pustule to the left lateral lower extremity near calf; also one small pustule to the left dorsum of hand HEAD: Normocephalic and atraumatic. EYES: No scleral icterus. No injection or drainage. ENT: No nasal drainage noted. Mucous membranes pink. Airway patent. NECK: Supple, trachea midline. No JVD. CARDIOVASCULAR: Regular rate and rhythm without murmurs, gallops, or rubs. RESPIRATORY: Breath sounds equal bilaterally. No accessory muscle use. No rhonchi or rales. GASTROINTESTINAL: visual inspection normal EXTREMITIES: No cyanosis or edema. BACK: No obvious deformity. NEURO: CN II-12 intact, case management specialist strength normal b/l, UE and LE 5/5, no focal deficits PSYCH: AAO x 3, normal affect. Data Data Last Documented VS Vital Signs Date Time Temp Pulse Resp B/P (MAP) Pulse Ox O2 Delivery O2 Flow Rate FiO2 02/13/17 11:10 98.9 97 19 165/85 (111) 97 Room Air MDM Medical Decision Making Medical Screen Exam Complete: Yes Emergency Medical Condition: Yes Medical Record Reviewed: Yes Differential Diagnosis pustule, cellulitis, less likely abscess Narrative Course 41 yr old male here with two small pustules and mild cellulitis. I have provided him with bactrim. I recommend keeping area clean with soap and water. Return to ED for worsening. Patient verbalized understanding of instructions, questions were answered, and thanked me for their care. I advised them if their condition worsens, please return to the nearest emergency room for further care. Diagnosis Primary Impression: Skin pustule Additional Impression: Cellulitis Qualified Codes: L03.116 - Cellulitis of left lower limb Patient Instructions: General Instructions Additional Instructions: Please return to emergency department if your symptoms return or worsen. Follow up with your primary care provider. Take medications as prescribed. Keep area clean and dry. Watch for signs of infection: fever, redness, swelling, warmth, pus or drainage , red streaks around the cut, and increased pain from the area. Med/Other Pt SpecificInfo: Prescription(s) given Scripts Sulfamethoxazole-Trimethoprim (Bactrim DS) 800-160 Mg Tab 1 TAB PO BID for Infection, #20 TAB 0 Refills Prov: Sagar Ochoa MD 02/13/17 Disposition: 01 DISCHARGE HOME Condition: Stable Cierra Conti Feb 13, 2017 11:15
[2017-02-13] MEDS ORDERED: BACT800T5 PO (11:19)
== END 2017-02-13 12:03 | disposition home or self-care (01) ==
LOC: NEPK 11:08
DX: L03.116 Cellulitis of left lower limb (principal); I10 Essential (primary) hypertension; Z72.0 Tobacco use
CPT/HCPCS: 99283

== ENCOUNTER 2017-02-19 10:32 | Emergency (ER) | payer OTHER ==
[~2017-02-19] VITALS: Ht 177.8 cm; Wt 94.0 kg
[~2017-02-19 10:32] MED LIST changes: +BACT800T5 PO
[2017-02-19 10:33] VITALS: BP 133/98; PULSE 111; RESP 14; TEMP 98.2; O2SAT 98
[2017-02-19] MEDS ORDERED: GABA600T PO (11:07)
--- NOTE | 2017-02-19 11:11 | PD ---
HPI Chief Complaint: Medication Refill Request Time Seen by Provider: 11:00 Travel History International Travel<30 days: No Contact w/Intl Traveler<30days: No Traveled to known affect area: No History of Present Illness HPI Patient comes in requesting a refill of his gabapentin that he has been out of for about 3 days. Patient states he's been on this for a mood stabilizer as well as restless leg symptoms since he was a child. Patient states when he is off of it starts feeling weird and having "twitching" in his extremities. Patient states he has recently been able to get appointment with the primary care doctor is appointment in a a week or 2. Patient states he's been using his previous prescribed medication by the ER as well as an old prescription he found from [place]. Patient denies anything making his symptoms better or worse. Denies any other medical complaints. Denies any chest pain, shortness breath, nausea or vomiting, abdominal pain, fevers, loss or change in bowel or bladder, or headaches. Patient states he takes 1200 mg of gabapentin twice a day. PFSH Past Medical History Bipolar Disorder: Yes Anxiety: Yes Depression: Yes Cardiovascular Problems: Yes (htn not taking b/p meds out of meds) Diminished Hearing: No Hypertension: Yes Schizophrenia: Yes Social History Alcohol Use: No (DENIES USE SINCE 2014) Tobacco Use: Yes (1/2 PPD) Substance Use: Yes Allergies-Medications (Allergen,Severity, Reaction): Coded Allergies: No Known Allergies (Unverified , 02/19/17) Reported Meds & Prescriptions Reported Meds & Active Scripts Active Gabapentin 600 Mg Tab 1,200 Mg PO BID 10 Days Bactrim DS (Sulfamethoxazole-Trimethoprim) 800-160 Mg Tab 1 Tab PO BID Gabapentin 600 Mg Tab 1,200 Mg PO BID 3 Days Reported Lisinopril 10 Mg Tab 10 Mg PO DAILY Review of Systems Except as stated in HPI: all other systems reviewed are Neg Physical Exam Narrative GENERAL: Well-developed, overly nourished, in no acute distress, and non-ill appearing. SKIN: Focused skin assessment warm and dry. HEAD: Atraumatic. Normocephalic. EYES: Pupils equal and round. EOMI. No scleral icterus. No injection or drainage. ENT: No nasal bleeding or discharge. Mucous membranes pink and moist. NECK: Trachea midline. Supple. No nuclear rigidity. RESPIRATORY: No accessory muscle use. No respiratory distress. MUSCULOSKELETAL: No obvious deformities. No clubbing. No cyanosis. No edema. Full range of motion. NEUROLOGICAL: Awake and alert. No obvious cranial nerve deficits. Motor grossly within normal limits. Normal speech. PSYCHIATRIC: Appropriate mood and affect; insight and judgment normal. Data Data Last Documented VS Vital Signs Date Time Temp Pulse Resp B/P (MAP) Pulse Ox O2 Delivery O2 Flow Rate FiO2 02/19/17 11:10 02/19/17 10:33 98.2 111 14 98 MDM Medical Decision Making Medical Screen Exam Complete: Yes Emergency Medical Condition: No Differential Diagnosis Medication refill, restless leg syndrome, bipolar, other Narrative Course Patient in no obvious distress upon re-evaluation. Patient was asked if they wanted to speak to my attending, which the patient did not wish to do at this time. Any questions/concerns in reference to patient diagnosis/condition discussed and clarified prior to patient's discharge. Reinforced sheer importance of close follow up with patient's primary physician or primary care clinic. Instructed patient to return to ED immediately, if symptoms return/ worsen. Pt showed understanding of above instructions. Further instructions and recommendations were detailed in discharge paperwork. Pt ambulated without difficulty out of ED at discharge. Diagnosis Primary Impression: Medication refill Referrals: [facility] Patient Instructions: General Instructions, Medicine Refill (ED) Additional Instructions: Follow-up with your primary care physician for future refills. Take all medication as prescribed. Return to the emergency department if symptoms get worse. Med/Other Pt SpecificInfo: Prescription(s) given Scripts Gabapentin (Gabapentin) 600 Mg Tab 1200 MG PO BID for 10 Days, #40 TAB 0 Refills Prov: Alayna Bey MD 02/19/17 Disposition: 01 DISCHARGE HOME Condition: Stable Royal Ackerman Feb 19, 2017 11:05
== END 2017-02-19 11:14 | disposition home or self-care (01) ==
LOC: NEPK 10:32
DX: Z76.0 Encounter for issue of repeat prescription (principal); F31.9 Bipolar disorder, unspecified; F41.9 Anxiety disorder, unspecified; I10 Essential (primary) hypertension; F20.9 Schizophrenia, unspecified; F17.200 Nicotine dependence, unspecified, uncomplicated; Z79.899 Other long term (current) drug therapy
CPT/HCPCS: 99283